=== PATIENT | female | born 1980 | race Caucasian/White ===

== ENCOUNTER 2017-10-13 11:35 | Outpatient (CLI) | payer MEDICAID ==
[2017-10-13] MEDS ORDERED: FLUMAZENIL 0.5 MG/5 ML MDV IVP PRN (11:49)
[2017-10-13] MEDS ORDERED: NALOXONE HCL 0.4 MG/ML INJ IVP PRN (11:49)
[2017-10-13] MEDS ORDERED: fentaNYL 100 MCG/2 ML INJ IVP PRN (11:49)
[2017-10-13] MEDS ORDERED: MIDAZOLAM 2 MG/2 ML VIAL IVP PRN (11:49)
[2017-10-13] MEDS ORDERED: MEPERIDINE 25 MG/ML SYR IVP PRN (11:49)
[2017-10-13] MEDS ORDERED: NS 1,000 ML IV SCH (12:00)
[2017-10-13] MEDS ORDERED: fentaNYL 100 MCG/2 ML INJ ONE (13:17)
[2017-10-13] MEDS ORDERED: GADOBUTROL 10 ML VIAL IVP ONE (13:17)
[2017-10-13] MEDS ORDERED: MIDAZOLAM 2 MG/2 ML VIAL ONE (13:17)
--- NOTE | 2017-10-13 13:17 | PDRADPRE ---
Radiology History & Physical Home medications: Levothyroxine 88 mcg PO DAILY 10/08/17 [Last Taken Unknown] Liothyronine Sodium 5 mcg PO BID 10/08/17 [Last Taken Unknown] Percocet 5-325 mg Tablet 5 - 325 mg PO BID PRN 10/08/17 [Last Taken Unknown] Prednisone 10/08/17 [Last Taken Unknown] Allergies/Adverse Reactions: amoxicillin [From Augmentin] Allergy (Verified 10/08/17 16:24) clavulanic acid [From Augmentin] Allergy (Verified 10/08/17 16:24)
--- NOTE | 2017-10-13 13:18 | PDPROPOC ---
Sedation Plan of Care Sedation Plan of Care: vital signs stable, mental status noted, patient educated of risks, benefits, alternatives, patient can tolerate sedation ASA Classification: ASA 1 Planned drugs: fentanyl, midazolam Mallampati Score: Class 1 Mallampati Reference Image: Patient passed 3-3-2 rule?: Yes
[2017-10-13 14:46] VITALS: BP 123/76; O2SAT 100
[2017-10-13 14:55] VITALS: PULSE 64; RESP 16; TEMP 97.7
--- NOTE | 2017-10-13 15:01 | PDRADPN ---
Radiology Procedure Note Date of Procedure: 10/13/17 Radiologist: Inocencio Hernandez Kiln Maintenance(s): Etienne Del Valle Anesthesia: IV Sedation Pre-op Diagnosis: Back pain Post-op Diagnosis: Back pain Indication: Claustrophobia Procedure: MRI Inf/Abcess present in the surg proc area at time of surgery?: No
== END 2017-10-13 15:30 | disposition home or self-care (01) ==
LOC: FIMAGING 11:35
PROVIDERS: ATTEND Neurological Surgery
PROC: BR39Y0Z Magnetic Resonance Imaging (MRI) of Lumbar Spine using Other Contrast, Unenhanced and Enhanced (ICD-10-PCS; principal; 2017-10-13 14:25)
DX: M21.372 Foot drop, left foot (principal); G89.4 Chronic pain syndrome; F40.240 Claustrophobia; M51.27 Other intervertebral disc displacement, lumbosacral region; Z98.1 Arthrodesis status
CPT/HCPCS: A9585; J2250; J3010